=== PATIENT | male | born 1970 ===

== ENCOUNTER → 2020-12-09 | Outpatient (CLI) | payer BC ==
--- NOTE | 2020-12-09 17:20 | RAD ---
EXAM: NM PET/CT SKULL BASE TO MID THIGH EXAM DATE: 12/09/2020 INDICATION: Reason: L LOWER LOBE PLEURAL BASED DENSITY R91.8 / Spl. Instructions: / History: RADIOPHARMACEUTICAL: 10.21 mCi of F-18 Fluorodeoxyglucose (FDG) I.V. via the left antecubital fossa. TECHNIQUE: Patient weight: 270 pounds. Following at least four-hour fasting, the patient's blood gluc ose was 103 mg/dl. Approximately 1 hour after administration of FDG, overlapping emission scanning w as performed from the orbital meatal line through the pelvis. A low-dose CT was performed for attenu ation correction purposes and anatomic localization. Fused images of PET and CT were reviewed. Any s tandardized uptake values (SUV) reported are maximum values within a volume region of interest, expre ssed in gm/ml. COMPARISON: No relevant comparisons currently available. Report on a prior chest CT performed on 2019 at [facility] is available for review FINDINGS: PET: There is focal increased activity in the low rectum/anal canal to a max SUV of 6.58, compared with ba ckground mediastinal activity of 3.62 max SUV and background liver uptake to max SUV of 3.49. No abnormal FDG activity is otherwise appreciated in the included field of view. CT: In the head and neck, no mass or adenopathy is seen. In the chest, no suspicious lung nodules are identified. In particular, no lung nodule in the posteri or medial left lower lobe is identified. A small left Bochdalek hernia is present. No pleural effusio n or pneumothorax. No mass or adenopathy and no suspicious bone lesions. Also in the chest, an oval, circumscribed 1.2 cm nodule is present in the superior right breast and is suggestive of a sebaceous cyst, separate from the patient's nipple. In the abdomen and pelvis, solid abdominal organs on unenhanced CT are unremarkable. No acute bowel p athology is apparent. The appendix is normal. No findings of obstruction, perforation or acute inflam mation are noted. There are minimally prominent right external iliac lymph nodes. Osseous structures reveal no significant additional abnormal findings. IMPRESSION: No suspicious lung nodules and no abnormal FDG uptake except for the anal canal is apparent. This is nonspecific and could reflect the presence of thrombosed hemorrhoidal veins. Recommend correlation wi th clinical exam. Otherwise negative study. Presumably, the previously noted lung nodule was inflamma tory and has since resolved. Electronically signed by: Boby Metcalf MD (12/09/2020 5:18 PM) [id number]
== END ==
LOC: PETSC 09:25
PROVIDERS: ATTEND Family Medicine
DX: R91.8 Other nonspecific abnormal finding of lung field (principal); K92.1 Melena; J45.991 Cough variant asthma; J44.9 Chronic obstructive pulmonary disease, unspecified; G47.37 Central sleep apnea in conditions classified elsewhere
CPT/HCPCS: 78815; A9552